=== PATIENT | male | born 1985 | race Caucasian/White ===

== ENCOUNTER 2017-05-25 15:11 | Emergency (ER) | payer SELFPAY ==
[~2017-05-25] VITALS: Ht 170.2 cm; Wt 87.0 kg
[~2017-05-25 15:11] MED LIST: BACT800T5 PO; CEPH500C3 PO; LORTA5 PO; SILV1CRE80 TOP
[2017-05-25] MEDS ORDERED: SODIUM CHLOR 0.9% 1000 ML INJ 1,000 ML IV SCH (15:21)
[2017-05-25] MEDS ORDERED: SODIUM CHLORIDE 0.9% FLUSH 10 ML FLUSH IVF PRN (15:30)
[2017-05-25] MEDS ORDERED: HYDROmorphone HCL PF 1 MG/ML VIAL IVS ONE (15:30)
[2017-05-25] MEDS ORDERED: SODIUM CHLORIDE 0.9% FLUSH 10 ML FLUSH IV FLUSH PRN (15:30)
[2017-05-25] MEDS ORDERED: ONDANSETRON HCL 4 MG/2 ML VIAL IVP ONE (15:30)
[2017-05-25 15:32] VITALS: BP 141/88; PULSE 77; RESP 16; TEMP 97.9; O2SAT 100
[2017-05-25 15:36] VITALS: O2SAT 98
[2017-05-25] MEDS ORDERED: ADDE30TA PO (15:40)
[2017-05-25 16:08] LABS: BASOPHIL # 0.1 TH/MM3 (0-0.2); BASOPHIL % 0.9 % (0.0-2.0); EOSINOPHIL # 0.3 TH/MM3 (0-0.4); EOSINOPHIL % 3.7 % (0.0-4.0); HEMO FLAGS DIFF FINAL; LYMPH % 30.9 % (9.0-44.0); LYMPHOCYTE # 2.3 TH/MM3 (1.0-4.8); MEAN CELL VOLUME 90.7 FL (80.0-100.0); MEAN CORPUSCULAR HEMOGLOBIN 31.4 PG (27.0-34.0); MEAN CORPUSCULAR HGB CONC 34.7 % (32.0-36.0); NEUT % 55.5 % (16.0-70.0); PLATELET COUNT 234 TH/MM3 (150-450); RED BLOOD COUNT 4.52 MIL/MM3 (4.50-5.90); RED CELL DISTRIBUTION WIDTH 12.6 % (11.6-17.2); WHITE BLOOD COUNT 7.4 TH/MM3 (4.0-11.0)
[2017-05-25 16:23] LABS: POTASSIUM 3.4 MEQ/L (3.5-5.1)
[2017-05-25 16:26] LABS: BICARBONATE 24.6 MEQ/L (21.0-32.0)
--- NOTE | 2017-05-25 16:40 | RADRPT ---
EXAM DATE/TIME: 05/25/2017 16:06 [facility] COMPARISON: No previous studies available for comparison. INDICATIONS : Left groin lump with bleeding and pain. MEDICAL HISTORY : Left groin lump with bleeding and pain. SURGICAL HISTORY : None. ENCOUNTER: Initial ACUITY: 1 week PAIN SCORE: 9/10 LOCATION: Left testicle. MEASUREMENTS: RIGHT TESTICLE: 4.0 x 4.1 x 2.0cm LEFT TESTICLE: 3.4 x 3.5 x 2.3cm FINDINGS: RIGHT TESTICLE: Homogeneous echotexture without intra or extratesticular mass. Blood flow is sym metric and within normal limits. No hydrocele or varicocele. Epididymis is within normal limits. LEFT TESTICLE: Homogeneous echotexture without intra or extratesticular mass. Blood flow is symm etric and within normal limits. No hydrocele or varicocele. Epididymis is within normal limits. The re is a complex fluid collection in the area of focal pain/bleeding within the left groin which may r epresent a small abscess measuring 2.8 x 2.3 x 1.2 cm. Clinical correlation is recommended. SCROTUM: Within normal limits. CONCLUSION: 1. Complex fluid collection in the area of focal pain/bleeding within the left groin which may repres ent a small abscess measuring 2.8 x 2.3 x 1.2 cm. Clinical correlation is recommended. 2. No testicular torsion, intratesticular mass or acute epididymo-orchitis. Ugo Decker MD on May 25, 2017 at 16:34 Board Certified Radiologist. This report was verified electronically.
[2017-05-25] MEDS ORDERED: IOHEXOL 350 MG/ML 10 ML VIAL (for RAD DIAG) IV ONE (17:05)
--- NOTE | 2017-05-25 17:10 | PD ---
HPI Chief Complaint: Skin Problem Time Seen by Provider: 15:21 Travel History International Travel<30 days: No Contact w/Intl Traveler<30days: No Traveled to known affect area: No History of Present Illness HPI 31 yo patient has had about 3 days of gradually increasing pain in the region of the left groin. He spontaneous drainage of seropurulent discharge began collecting upon anal crease prior to ER arrival. He states the pain is constant and severe. No testicular or external genitalia pain. Timing constant. No fever. Pain is worse with palpation. Drainage also increases with palpation. PFSH Past Medical History ADHD: Yes Diminished Hearing: No Tetanus Vaccination: < 5 Years Past Surgical History Surgical History: No Previous Surgery Ear Surgery: Yes (TUBES A KID) Social History Alcohol Use: Yes (Occasional. ) Tobacco Use: No Substance Use: No Allergies-Medications (Allergen,Severity, Reaction): Coded Allergies: Aspirin (Verified Adverse Reaction, Severe, 07/25/14) Reported Meds & Prescriptions Reported Meds & Active Scripts Active Keflex (Cephalexin) 500 Mg Cap 500 Mg PO Q8H Reported Adderall (Amphetamine-Dextroamphetamine) 30 Mg Tab 30 Mg PO BID Avoid late evening doses. Space doses at least 4 to 6 hours if more than once/day dosing. Review of Systems Except as stated in HPI: all other systems reviewed are Neg Physical Exam Narrative GENERAL: 31-year-old male well-nourished well-developed moderate distress secondary to pain SKIN: Focused skin assessment warm/dry. There is a focus of purulent discharge in the inguinal crease on the left side with adjacent induration and tenderness. There is pain with manipulation of testicle. Left testicle slightly elevated. HEAD: Atraumatic. Normocephalic. EYES: Pupils equal and round. No scleral icterus. No injection or drainage. ENT: No nasal bleeding or discharge. Mucous membranes pink and moist. NECK: Trachea midline. No JVD. CARDIOVASCULAR: Regular rate and rhythm. No murmur appreciated. RESPIRATORY: No accessory muscle use. Clear to auscultation. Breath sounds equal bilaterally. GASTROINTESTINAL: Abdomen soft, non-tender, nondistended. Hepatic and splenic margins not palpable. MUSCULOSKELETAL: No obvious deformities. No clubbing. No cyanosis. No edema. NEUROLOGICAL: Awake and alert. No obvious cranial nerve deficits. Motor grossly within normal limits. Normal speech. PSYCHIATRIC: Appropriate mood and affect; insight and judgment normal. Data Data Last Documented VS Vital Signs Date Time Temp Pulse Resp B/P Pulse Ox O2 Delivery O2 Flow Rate FiO2 05/25/17 15:36 98 Room Air 05/25/17 15:32 97.9 77 16 141/88 Vital signs reviewed Orders Basic Metabolic Panel (Bmp) (05/25/17 15:21) Complete Blood Count With Diff (05/25/17 15:21) Lactic Acid (05/25/17 15:21) Ct Abd/Pel W Iv Contrast(Rout) (05/25/17 15:21) Iv Access Insert/Monitor (05/25/17 15:21) Ecg Monitoring (05/25/17 15:21) Oximetry (05/25/17 15:21) Ondansetron Inj (Zofran Inj) (05/25/17 15:30) Sodium Chlor 0.9% 1000 Ml Inj (Ns 1000 M (05/25/17 15:21) Sodium Chloride 0.9% Flush (Ns Flush) (05/25/17 15:30) Hydromorphone Pf Inj (Dilaudid Pf Inj) (05/25/17 15:30) Us Testicles W Doppler (05/25/17 15:27) Sodium Chloride 0.9% Flush (Ns Flush) (05/25/17 15:30) Iohexol 350 Inj (Omnipaque 350 Inj) (05/25/17 17:05) Wound Culture And Gram Stain (05/25/17 17:34) Cephalexin (Keflex) (05/25/17 17:45) Labs Laboratory Tests Test 05/25/17 15:53 White Blood Count 7.4 TH/MM3 Red Blood Count 4.52 MIL/MM3 Hemoglobin 14.2 GM/DL Hematocrit 41.0 % Mean Corpuscular Volume 90.7 FL Mean Corpuscular Hemoglobin 31.4 PG Mean Corpuscular Hemoglobin 34.7 % Concent Red Cell Distribution Width 12.6 % Platelet Count 234 TH/MM3 Mean Platelet Volume 8.6 FL Neutrophils (%) (Auto) 55.5 % Lymphocytes (%) (Auto) 30.9 % Monocytes (%) (Auto) 9.0 % Eosinophils (%) (Auto) 3.7 % Basophils (%) (Auto) 0.9 % Neutrophils # (Auto) 4.0 TH/MM3 Lymphocytes # (Auto) 2.3 TH/MM3 Monocytes # (Auto) 0.7 TH/MM3 Eosinophils # (Auto) 0.3 TH/MM3 Basophils # (Auto) 0.1 TH/MM3 CBC Comment DIFF FINAL Differential Comment Sodium Level 142 MEQ/L Potassium Level 3.4 MEQ/L Chloride Level 107 MEQ/L Carbon Dioxide Level 24.6 MEQ/L Anion Gap 10 MEQ/L Blood Urea Nitrogen 13 MG/DL Creatinine 0.88 MG/DL Estimat Glomerular Filtration 100 ML/MIN Rate Random Glucose 86 MG/DL Lactic Acid Level 2.9 mmol/L Calcium Level 8.9 MG/DL MDM Medical Decision Making Medical Screen Exam Complete: Yes Emergency Medical Condition: Yes Medical Record Reviewed: Yes Differential Diagnosis Abscess, testicular torsion, cellulitis Narrative Course CBC & BMP Diagram 05/25/17 15:53 Last 24 hours Impressions Scrotum Ultrasound 05/25/17 1527 Signed Impressions: Service Date/Time: Thursday, May 25, 2017 16:06 - CONCLUSION: 1. Complex fluid collection in the area of focal pain/bleeding within the left groin which may represent a small abscess measuring 2.8 x 2.3 x 1.2 cm. Clinical correlation is recommended. 2. No testicular torsion, intratesticular mass or acute epididymo-orchitis. Ugo Decker MD Abdomen/Pelvis CT 05/25/17 1521 Signed Impressions: Service Date/Time: Thursday, May 25, 2017 16:42 - CONCLUSION: 1. 2 cm subcutaneous area induration likely related to inflammation in the subcutaneous fat at the left groin. 2. Hepatic steatosis. Behzad Holden MD [place] 2.9 likely 2/2 tourniquet time Abscess I&D performed, wound culture Procedures Procedure Narrative After the risks and benefits were discussed the following procedure was performed: INCISION AND DRAINAGE OF ABSCESS: The area was prepped and was sterilely draped. A number 11 scalpel was used to make a 1 -cm incision across the area of the abscess. Cultures were obtained. Sterile dressing applied. Patient advised to have packing removed in two days. Diagnosis Primary Impression: Abscess Referrals: Primary Care Physician 2 days Additional Instructions: You have a choice when it comes to health care, and we are glad that you chose [facility]. Hopefully, we have met your expectations on today's visit. You are welcome to return to [facility] at any time, as we are committed to meeting the health care needs of our community. Med/Other Pt SpecificInfo: Prescription(s) given Scripts Cephalexin (Keflex)500 Mg Abq090 Mg PO Q8H #30 CAP Ref 0 Prov:Mateo Fonseca MD 05/25/17 Disposition: 01 DISCHARGE HOME Condition: Stable Mateo Fonseca MD May 25, 2017 17:10
--- NOTE | 2017-05-25 17:20 | RADRPT ---
EXAM DATE/TIME: 05/25/2017 16:42 [facility] COMPARISON: No previous studies available for comparison. INDICATIONS : Left groin pain with bloody drainage. IV CONTRAST: 95 cc Omnipaque 350 (iohexol) IV ORAL CONTRAST: No oral contrast ingested. RADIATION DOSE: 19.04 CTDIvol (mGy) MEDICAL HISTORY : None SURGICAL HISTORY : None. ENCOUNTER: Initial ACUITY: 2 days PAIN SCALE: 10/10 LOCATION: Left pelvis TECHNIQUE: Volumetric scanning of the abdomen and pelvis was performed. Using automated exposure control and ad justment of the mA and/or kV according to patient size, radiation dose was kept as low as reasonably achievable to obtain optimal diagnostic quality images. DICOM format image data is available electro nically for review and comparison. FINDINGS: There is a 2 cm area of density and induration in the superficial subcutaneous fat at the left groin region. There are normal sized inguinal lymph nodes seen bilaterally but the inguinal lymph nodes ankit ear more prominent on the left. LOWER LUNGS: The visualized lower lungs are clear. LIVER: There is diffuse decreased attenuation to the liver. No focal hepatic masses seen. SPLEEN: Normal size without lesion. PANCREAS: Within normal limits. KIDNEYS: Normal in size and shape. There is no mass, stone or hydronephrosis. ADRENAL GLANDS: Within normal limits. VASCULAR: There is no aortic aneurysm. BOWEL/MESENTERY: The stomach, small bowel, and colon demonstrate no acute abnormality. There is no free intraperitone al air or fluid. ABDOMINAL WALL: Within normal limits. RETROPERITONEUM: There is no lymphadenopathy. BLADDER: No wall thickening or mass. REPRODUCTIVE: Within normal limits. INGUINAL: There is no lymphadenopathy or hernia. MUSCULOSKELETAL: Within normal limits for patient age. CONCLUSION: 1. 2 cm subcutaneous area induration likely related to inflammation in the subcutaneous fat at the le ft groin. 2. Hepatic steatosis. Behzad Holden MD on May 25, 2017 at 17:13 Board Certified Radiologist. This report was verified electronically.
[2017-05-25] MEDS ORDERED: CEPHALEXIN MONOHYDRATE 500 MG CAP PO ONE (17:45)
[2017-05-25] MEDS ORDERED: CEPH-460 PO (17:50)
== END 2017-05-25 18:25 | disposition home or self-care (01) ==
LOC: PHED 15:11
DX: L02.214 Cutaneous abscess of groin (principal); B95.61 Methicillin susceptible Staphylococcus aureus infection as the cause of diseases classified elsewhere
CPT/HCPCS: 10061; 74177; 76870; 80048; 83605; 85025; 86403; 87070; 87186; 93975; 99285; Q9967; 87205